=== PATIENT | female | born 1950 | race African-American/Black ===

== ENCOUNTER 2023-10-02 21:31 | Inpatient (IN) | payer OTHER ==
[2023-10-02 22:58] LABS: BASO % 0.5 % (0-2.0); EOS % 0.7 % (0-4.5); HEMATOCRIT 32.4 % (32.4-45.2); HEMOGLOBIN 10.6 GM/dL (10.7-15.3); LYMPH % 15.6 % (8-40); MCH 27.2 pg (25.7-33.7); MCHC 32.8 g/dl (32.0-36.0); MEAN CELL VOLUME 82.9 fl (80-96); MEAN PLT VOLUME 6.8 fl (7.5-11.1); MONO % 15.1 % (3.8-10.2); NEUT % 68.1 % (42.8-82.8); PLATELET COUNT 469 10^3/uL (134-434); RBC 3.91 M/mm3 (3.60-5.2); RDW 13.9 % (11.6-15.6); WHITE BLOOD COUNT 7.6 K/mm3 (4.0-10.0)
[2023-10-02 23:00] LABS: EPI CELLS 6 /uL (0-25.1); HYALINE CASTS 1 /uL (0-3.1); URINE APPEARANCE TURBID; URINE BILIRUBIN NEGATIVE (NEGATIVE); URINE COLOR YELLOW; URINE GLUCOSE (UA) 3+ (NEGATIVE); URINE KETONE NEGATIVE (NEGATIVE); URINE LEUK ESTERASE 3+ (NEGATIVE); URINE NITRITE POSITIVE (NEGATIVE); URINE PROTEIN 1+ (NEGATIVE); URINE RBC 112 /uL (0-23.9); URINE UROBILINOGEN 0.2 mg/dL (0.2-1.0); URINE WBC 10745 /uL (0-25.8)
[2023-10-02 23:04] LABS: INR 1.1 (0.83-1.09); PROTHROMBIN TIME (PATIENT) 12.7 SEC (9.7-13.0)
[2023-10-02 23:07] LABS: ACTIVATED PTT 29.5 SECONDS (25.2-36.5)
[2023-10-02 23:16] LABS: POTASSIUM 4.9 mmol/L (3.5-5.1)
[2023-10-02 23:18] LABS: BLOOD UREA NITROGEN 12.6 mg/dL (7-18); CALCIUM 9.6 mg/dL (8.5-10.1)
[2023-10-02 23:18] LABS: URINE BACTERIA 271.3 /uL (0-1359); YEAST FEW (NEGATIVE)
[2023-10-02 23:22] LABS: CREATININE 0.8 mg/dL (0.55-1.3)
[2023-10-02 23:23] LABS: BILIRUBIN,TOTAL 0.2 mg/dL (0.2-1); TOT PROT 7.5 g/dl (6.4-8.2)
[2023-10-03] MEDS ORDERED: CIPROFLOXACIN 400 MG/D5W 400 MG/200 ML IVPB IVPB ONE (00:14)
[2023-10-03] MEDS ORDERED: ACETAMINOPHEN 1000 MG/100 ML BAG IVPB ONE (00:59)
[2023-10-03] MEDS ORDERED: ACETAMINOPHEN INJECTION 100 ML IVPB ONE (02:16)
[2023-10-03] MEDS ORDERED: VANCOMYCIN 1 GRAM (PRE-DOCKED) 1,000 MG/250 ML BAG IVPB SCH ×2 (06:15)
[2023-10-03 07:10] LABS: HEMOGLOBIN 9.4 GM/dL (10.7-15.3); MCH 27.5 pg (25.7-33.7); MCHC 33.5 g/dl (32.0-36.0); MEAN PLT VOLUME 7.1 fl (7.5-11.1); PLATELET COUNT 424 10^3/uL (134-434); RBC 3.42 M/mm3 (3.60-5.2); RDW 13.7 % (11.6-15.6)
[2023-10-03 07:36] LABS: POTASSIUM 4.1 mmol/L (3.5-5.1)
[2023-10-03 07:44] LABS: ALBUMIN 2.6 g/dl (3.4-5.0); BLOOD UREA NITROGEN 13.4 mg/dL (7-18)
[2023-10-03 07:47] LABS: CREATININE 0.8 mg/dL (0.55-1.3)
[2023-10-03 07:48] LABS: BILIRUBIN,TOTAL 0.3 mg/dL (0.2-1); TOT PROT 6.7 g/dl (6.4-8.2)
[2023-10-03] MEDS ORDERED: VANCOMYCIN 1 GRAM (PRE-DOCKED) 1,000 MG/250 ML BAG IVPB ONE (07:49)
[2023-10-03] MEDS: INSULIN ASPART SLIDING SCALE (NOVOLOG) 1 VIAL SQ SCH ×3 (08:04→18:20)
[2023-10-03] MEDS ORDERED: LOSARTAN POTASSIUM 25 MG TABLET ONE (09:12)
[2023-10-03] MEDS: LOSARTAN POTASSIUM 25 MG TABLET PO SCH (10:26)
[2023-10-03] MEDS ORDERED: PIPERACILLIN/TAZOB 3.375 GM 3.375 GM/50 ML BAG IVPB ONE ×2 (12:35→18:19)
[2023-10-03] MEDS: PIPERACILLIN/TAZOB 3.375 GM 3.375 GM in DEXTROSE 5%-WATER - 50 ML IVPB SCH ×2 (12:38→18:22)
[2023-10-03] MEDS ORDERED: INSULIN (NOVOLOG) ASPART 100 UNITS/ML 10ML VIAL ONE ×2 (12:44→18:19)
[2023-10-04] MEDS: ATORVASTATIN CA 10 MG TABLET (FP) PO SCH ×2 (01:28→21:41)
[2023-10-04] MEDS ORDERED: ATORVASTATIN CA 10 MG TABLET (FP) ONE (01:30)
[2023-10-04] MEDS: INSULIN ASPART SLIDING SCALE (NOVOLOG) 1 VIAL SQ SCH ×5 (01:34→21:46)
[2023-10-04] MEDS: PIPERACILLIN/TAZOB 3.375 GM 3.375 GM in DEXTROSE 5%-WATER - 50 ML IVPB SCH ×3 (04:10→17:35)
[2023-10-04] MEDS ORDERED: VANCOMYCIN 1 GRAM (PRE-DOCKED) 1,000 MG/250 ML BAG IVPB SCH (06:15)
[2023-10-04] MEDS ORDERED: PIPERACILLIN/TAZOB 3.375 GM 3.375 GM/50 ML BAG IVPB ONE ×2 (06:35→06:36)
[2023-10-04 07:42] LABS: HEMATOCRIT 30.8 % (32.4-45.2); HEMOGLOBIN 10.3 GM/dL (10.7-15.3); MCH 27.4 pg (25.7-33.7); MCHC 33.5 g/dl (32.0-36.0); MEAN CELL VOLUME 81.9 fl (80-96); MEAN PLT VOLUME 7.3 fl (7.5-11.1); PLATELET COUNT 474 10^3/uL (134-434); RBC 3.76 M/mm3 (3.60-5.2); RDW 13.5 % (11.6-15.6); WHITE BLOOD COUNT 6.6 K/mm3 (4.0-10.0)
[2023-10-04 07:58] LABS: POTASSIUM 4.3 mmol/L (3.5-5.1)
[2023-10-04 08:00] LABS: CALCIUM 9.4 mg/dL (8.5-10.1)
[2023-10-04 08:01] LABS: BLOOD UREA NITROGEN 15.2 mg/dL (7-18)
[2023-10-04 08:04] LABS: CREATININE 0.7 mg/dL (0.55-1.3)
[2023-10-04] MEDS: LOSARTAN POTASSIUM 25 MG TABLET PO SCH (12:24)
[2023-10-04] MEDS: LACTOBACILLUS ACIDOPHILUS 1 TABLET PO SCH (12:24)
[2023-10-04 16:39] VITALS: BMI 24.7
[2023-10-05] MEDS: PIPERACILLIN/TAZOB 3.375 GM 3.375 GM in DEXTROSE 5%-WATER - 50 ML IVPB SCH ×3 (02:10→17:25)
[2023-10-05] MEDS: INSULIN ASPART SLIDING SCALE (NOVOLOG) 1 VIAL SQ SCH ×4 (06:54→22:27)
[2023-10-05 09:15] LABS: BASO % 1.2 % (0-2.0); EOS % 2.7 % (0-4.5); HEMATOCRIT 32.2 % (32.4-45.2); HEMOGLOBIN 10.1 GM/dL (10.7-15.3); LYMPH % 25.4 % (8-40); MCH 26.3 pg (25.7-33.7); MCHC 31.5 g/dl (32.0-36.0); MEAN CELL VOLUME 83.7 fl (80-96); MEAN PLT VOLUME 7.1 fl (7.5-11.1); MONO % 14.3 % (3.8-10.2); NEUT % 56.4 % (42.8-82.8); PLATELET COUNT 429 10^3/uL (134-434); RBC 3.85 M/mm3 (3.60-5.2); RDW 13.6 % (11.6-15.6); WHITE BLOOD COUNT 5.7 K/mm3 (4.0-10.0)
[2023-10-05 09:30] LABS: POTASSIUM 4.7 mmol/L (3.5-5.1)
[2023-10-05] MEDS: LOSARTAN POTASSIUM 25 MG TABLET PO SCH (09:32)
[2023-10-05] MEDS: TAMSULOSIN HCL 0.4 MG CAP PO SCH (09:32)
[2023-10-05] MEDS: LACTOBACILLUS ACIDOPHILUS 1 TABLET PO SCH (09:32)
[2023-10-05 09:36] LABS: BLOOD UREA NITROGEN 15.1 mg/dL (7-18)
[2023-10-05 09:39] LABS: CREATININE 0.7 mg/dL (0.55-1.3)
[2023-10-05] MEDS ORDERED: glipiZIDE 5 MG TABLET (FP) PO SCH ×2 (11:00→14:00)
[2023-10-05] MEDS ORDERED: INSULIN (NOVOLOG) ASPART 100 UNITS/ML 10ML VIAL ONE ×2 (11:13→17:04)
[2023-10-05] MEDS ORDERED: INSULIN (LEVEMIR) 100 UNITS/ML UNITS SQ SCH (22:00)
[2023-10-05] MEDS: ATORVASTATIN CA 10 MG TABLET (FP) PO SCH (22:25)
[2023-10-06] MEDS: INSULIN ASPART SLIDING SCALE (NOVOLOG) 1 VIAL SQ SCH ×4 (06:35→23:47)
[2023-10-06] MEDS ORDERED: INSULIN (LEVEMIR) 100 UNITS/ML UNITS SQ SCH (07:33)
[2023-10-06 07:54] LABS: POTASSIUM 4.1 mmol/L (3.5-5.1)
[2023-10-06 07:56] LABS: CALCIUM 9.6 mg/dL (8.5-10.1)
[2023-10-06 07:57] LABS: BLOOD UREA NITROGEN 15.9 mg/dL (7-18)
[2023-10-06 08:00] LABS: CREATININE 0.7 mg/dL (0.55-1.3)
[2023-10-06 08:01] LABS: BASO % 0.9 % (0-2.0); EOS % 3.4 % (0-4.5); HEMATOCRIT 31.9 % (32.4-45.2); HEMOGLOBIN 10.5 GM/dL (10.7-15.3); LYMPH % 24.6 % (8-40); MCH 27.2 pg (25.7-33.7); MCHC 32.8 g/dl (32.0-36.0); MEAN PLT VOLUME 6.7 fl (7.5-11.1); NEUT % 59.1 % (42.8-82.8); PLATELET COUNT 446 10^3/uL (134-434); RBC 3.84 M/mm3 (3.60-5.2); RDW 13.6 % (11.6-15.6); WHITE BLOOD COUNT 5.6 K/mm3 (4.0-10.0)
[2023-10-06] MEDS: LOSARTAN POTASSIUM 25 MG TABLET PO SCH (10:42)
[2023-10-06] MEDS: TAMSULOSIN HCL 0.4 MG CAP PO SCH (10:42)
[2023-10-06] MEDS: LACTOBACILLUS ACIDOPHILUS 1 TABLET PO SCH (10:42)
[2023-10-06] MEDS: CEFTRIAXONE 2 GM in DEXTROSE 5%-WATER - 50 ML IVPB SCH (10:45)
[2023-10-06] MEDS: INSULIN (LEVEMIR) 100 UNITS/ML UNITS SQ SCH (10:49)
[2023-10-06] MEDS ORDERED: INSULIN (NOVOLOG) ASPART 100 UNITS/ML 10ML VIAL ONE (11:50)
[2023-10-06] MEDS: PIPERACILLIN/TAZOB 3.375 GM 3.375 GM in DEXTROSE 5%-WATER - 50 ML IVPB SCH ×2 (13:16→13:17)
[2023-10-06] MEDS: ATORVASTATIN CA 10 MG TABLET (FP) PO SCH (23:45)
[2023-10-07] MEDS: INSULIN (LEVEMIR) 100 UNITS/ML UNITS SQ SCH ×2 (05:53→06:00)
[2023-10-07] MEDS: INSULIN ASPART SLIDING SCALE (NOVOLOG) 1 VIAL SQ SCH ×5 (05:53→22:06)
[2023-10-07 08:42] LABS: HEMATOCRIT 32.2 % (32.4-45.2); HEMOGLOBIN 10.5 GM/dL (10.7-15.3); MCH 26.8 pg (25.7-33.7); MCHC 32.7 g/dl (32.0-36.0); MEAN PLT VOLUME 6.6 fl (7.5-11.1); MONO % 11.5 % (3.8-10.2); NEUT % 59.5 % (42.8-82.8); PLATELET COUNT 452 10^3/uL (134-434); RBC 3.93 M/mm3 (3.60-5.2); RDW 13.6 % (11.6-15.6); WHITE BLOOD COUNT 5.5 K/mm3 (4.0-10.0)
[2023-10-07 08:58] LABS: POTASSIUM 4.2 mmol/L (3.5-5.1)
[2023-10-07 09:03] LABS: BLOOD UREA NITROGEN 17.7 mg/dL (7-18); CALCIUM 9.4 mg/dL (8.5-10.1); MAGNESIUM 1.8 mg/dL (1.8-2.4)
[2023-10-07 09:06] LABS: CREATININE 0.7 mg/dL (0.55-1.3)
[2023-10-07 09:08] LABS: BILIRUBIN,TOTAL 0.2 mg/dL (0.2-1)
[2023-10-07 09:09] LABS: TOT PROT 7.2 g/dl (6.4-8.2)
[2023-10-07] MEDS ORDERED: MAGNESIUM OXIDE 400 MG TABLET (FP) PO ONE ×2 (09:45→13:00)
[2023-10-07] MEDS ORDERED: INSULIN (NOVOLOG) ASPART 100 UNITS/ML 10ML VIAL ONE ×2 (11:38→21:10)
[2023-10-07] MEDS: LACTOBACILLUS ACIDOPHILUS 1 TABLET PO SCH (11:53)
[2023-10-07] MEDS: TAMSULOSIN HCL 0.4 MG CAP PO SCH (11:53)
[2023-10-07] MEDS: LOSARTAN POTASSIUM 25 MG TABLET PO SCH (11:53)
[2023-10-07] MEDS ORDERED: INSULIN (LEVEMIR) 100 UNITS/ML UNITS SQ SCH ×3 (11:54→21:05)
[2023-10-07] MEDS ORDERED: INSULIN ASPART SLIDING SCALE (NOVOLOG) 1 VIAL SQ SCH (11:55)
[2023-10-07] MEDS: CEFTRIAXONE 2 GM in DEXTROSE 5%-WATER - 50 ML IVPB SCH (11:56)
[2023-10-07] MEDS ORDERED: INSULIN (LEVEMIR) 100 UNITS/ML UNITS SQ ONE (12:04)
[2023-10-07] MEDS: metFORMIN HCL 500 MG TABLET (FP) PO SCH (17:17)
[2023-10-07] MEDS: INSULIN (NOVOLOG) ASPART 100 UNITS/ML 10ML VIAL SQ SCH (17:21)
[2023-10-07] MEDS: ATORVASTATIN CA 10 MG TABLET (FP) PO SCH (22:05)
[2023-10-08] MEDS: metFORMIN HCL 500 MG TABLET (FP) PO SCH ×2 (06:59→16:44)
[2023-10-08] MEDS: INSULIN (NOVOLOG) ASPART 100 UNITS/ML 10ML VIAL SQ SCH ×3 (07:01→16:45)
[2023-10-08] MEDS: INSULIN ASPART SLIDING SCALE (NOVOLOG) 1 VIAL SQ SCH ×3 (07:01→16:47)
[2023-10-08] MEDS ORDERED: INSULIN (LEVEMIR) 100 UNITS/ML UNITS SQ ONE (07:11)
[2023-10-08 08:21] LABS: POTASSIUM 4.5 mmol/L (3.5-5.1)
[2023-10-08 08:27] LABS: CALCIUM 9.3 mg/dL (8.5-10.1)
[2023-10-08 08:28] LABS: ALBUMIN 2.8 g/dl (3.4-5.0); BLOOD UREA NITROGEN 17.9 mg/dL (7-18); MAGNESIUM 1.9 mg/dL (1.8-2.4)
[2023-10-08 08:30] LABS: HEMATOCRIT 30.8 % (32.4-45.2); HEMOGLOBIN 10.3 GM/dL (10.7-15.3); MCH 27.6 pg (25.7-33.7); MCHC 33.6 g/dl (32.0-36.0); MEAN CELL VOLUME 82.1 fl (80-96); MEAN PLT VOLUME 6.7 fl (7.5-11.1); PLATELET COUNT 440 10^3/uL (134-434); RBC 3.75 M/mm3 (3.60-5.2); RDW 13.8 % (11.6-15.6); WHITE BLOOD COUNT 5.7 K/mm3 (4.0-10.0)
[2023-10-08 08:31] LABS: CREATININE 0.7 mg/dL (0.55-1.3)
[2023-10-08 08:32] LABS: BILIRUBIN,TOTAL 0.2 mg/dL (0.2-1)
[2023-10-08] MEDS: LACTOBACILLUS ACIDOPHILUS 1 TABLET PO SCH (09:56)
[2023-10-08] MEDS: TAMSULOSIN HCL 0.4 MG CAP PO SCH (09:56)
[2023-10-08] MEDS: LOSARTAN POTASSIUM 25 MG TABLET PO SCH (09:56)
[2023-10-08 14:02] VITALS: BP 128/57; PULSE 87; RESP 20; TEMP 98.1
== END 2023-10-08 19:00 | disposition home or self-care (01) | DRG 690 ==
LOC: JER 21:31 → JERBED 10-03 00:13 → J7W 10-04 09:03 → OBSVTOIN 10-07 13:02
PROVIDERS: ADMIT Internal Medicine; ATTEND Nurse Practitioner Acute Care
DX: N39.0 Urinary tract infection, site not specified (principal); I10 Essential (primary) hypertension; E11.65 Type 2 diabetes mellitus with hyperglycemia; E78.5 Hyperlipidemia, unspecified; R33.8 Other retention of urine
CPT/HCPCS: 0241U-QW; 36415; 71045-TC-FY; 76856-TC; 80048; 80053; 81003; 82962; 83036; 83735; 84100; 84484; 85025; 85027; 85610; 85730; 87040; 87086; 87186; 93005; 93010; 97116-GP; 99285-25; G0378; J0131